=== PATIENT | male | born 1965 | race Caucasian/White ===

== ENCOUNTER 2020-10-21 09:00 | Outpatient (CLI) | payer MEDICARE, MEDICAID, SELFPAY | END 2020-10-21 09:01 | disposition home or self-care (01) | LOC: CHSAUDIO 09:05 | PROVIDERS: PCP Physician Assistant; Visit Provider Physician Assistant | DX: H91.93 Unspecified hearing loss, bilateral (principal) | CPT/HCPCS: 99199 ==

== ENCOUNTER 2020-12-28 14:25 | Outpatient (CLI) | payer MEDICARE, MEDICAID, SELFPAY | END 2020-12-28 14:26 | disposition home or self-care (01) | LOC: ANHAUDASC 14:27 | PROVIDERS: PCP Physician Assistant; Visit Provider Family Medicine | DX: H91.93 Unspecified hearing loss, bilateral (principal) | CPT/HCPCS: 92555; 92567; 92579; 92587 ==